=== PATIENT | male | born 1935 | race Caucasian/White ===

== ENCOUNTER → 2017-03-27 | Outpatient (CLI) | payer MEDICARE ==
--- NOTE | 2017-03-27 12:54 | Diagnostic Imaging Report ---
PROCEDURE: US Thyroid. TECHNIQUE: Multiple real-time grayscale images were obtained of the thyroid in various projections. INDICATION: Thyroid nodules. COMPARISON: 04/06/2016. FINDINGS: The right thyroid lobe measures 5.1 x 2.2 x 2.0 cm, previously 4.8 x 1.5 x 1.9 cm. It contains two small subcentimeter hypoechoic nodules measuring 9 mm in long axis, unchanged from the prior exam. They appear well-defined. The left thyroid lobe measures 5.0 x 2.0 x 1.7 cm, previously 4.7 x 2.2 x 1.4 cm. A 6 mm nodule, circumscribed and well-defined in its mid pole laterally, is unchanged. No new dominant or suspicious mass. IMPRESSION: Stable benign-appearing subcentimeter thyroid nodules. Dictated by: Dictated on workstation # [id number]
== END ==
LOC: RAD 10:50
PROVIDERS: ATTEND Otolaryngology Otolaryngology/Facial Plastic Surgery
DX: E04.2 Nontoxic multinodular goiter (principal)
CPT/HCPCS: 76536

== ENCOUNTER → 2018-11-15 | Outpatient (CLI) | payer MEDICARE ==
--- NOTE | 2018-11-15 16:58 | Diagnostic Imaging Report ---
INDICATION: Thyroid nodules TECHNIQUE: Grayscale sonographic images of the thyroid gland. CORRELATION STUDY: FINDINGS: RIGHT LOBE: 4.7 x 1.6 x 1.9 cm. Small, subcentimeter nodules are present. Largest at the inferior pole measuring approximately 8 x 5 x 4 mm. Additional one at the mid aspect 6 x 6 x 4 mm. Both nodules appearing perhaps slightly smaller. LEFT LOBE: 5.2 x 2.3 x 1.1 cm. Small nodule mid superior pole 6 x 4 x 3 mm, relatively stable. No definitive new nodule or mass in either lobe. IMPRESSION: Bilateral thyroid nodule, stable to perhaps a few being slightly smaller. Borderline enlarged thyroid gland (Normal gland size: 4-5 x 2 x 2 cm) Dictated by: Dictated on workstation # [id number]
== END ==
LOC: RAD 12:56
PROVIDERS: ATTEND Otolaryngology Otolaryngology/Facial Plastic Surgery
DX: E04.2 Nontoxic multinodular goiter (principal)
CPT/HCPCS: 76536

== ENCOUNTER → 2019-12-22 | Outpatient (CLI) | payer MEDICARE ==
--- NOTE | 2019-12-22 13:55 | Diagnostic Imaging Report ---
PROCEDURE: US Thyroid. TECHNIQUE: Multiple real-time grayscale images were obtained of the thyroid in various projections. INDICATION: Thyroid nodules, follow up. COMPARISON: Correlation is made with prior thyroid ultrasound from 11/15/2018. FINDINGS: Right lobe of the thyroid measures 5.2 x 1.8 x 1.7 cm and the left lobe measures 4.9 x 1.6 x 1.2 cm. Bilateral thyroid nodules are again noted, two on the right and one on the left. All nodules remain less than 1 cm in size. Nodule on the left is approximately 6 mm x 4 mm, unchanged. Largest nodule on the right is approximately 8 mm x 5 mm compared with approximately 6 mm x 4 mm on prior. There is also a 4 mm nodule in the lower pole. No dominant mass is detected. IMPRESSION: Bilateral subcentimeter thyroid nodules, similar to the examination one year earlier. No dominant thyroid mass is detected. Dictated by: Dictated on workstation # [id number]
== END ==
LOC: RAD 11:10
PROVIDERS: ATTEND Otolaryngology Otolaryngology/Facial Plastic Surgery
DX: E04.1 Nontoxic single thyroid nodule (principal)
CPT/HCPCS: 76536

== ENCOUNTER → 2020-12-27 | Outpatient (CLI) | payer MEDICARE ==
--- NOTE | 2020-12-27 12:59 | Diagnostic Imaging Report ---
INDICATION: BILATERAL THYROID NODULES TECHNIQUE: Grayscale sonographic images of the thyroid gland. CORRELATION STUDY: 12/22/2019. FINDINGS: RIGHT LOBE: 4.9 x 2.7 x 1.7 cm. There are multiple small, at least three nodules within the right lobe. Largest measuring up to 1.2 x 0.5 cm in size. Previously noted largest one up to 0.9 x 0.8 x 0.5 cm. Two additional smaller nodules measuring up to 7 mm in maximum size. LEFT LOBE: 4.2 x 1.9 x 1.2 cm. There is a mixed solid and cystic nodule with calcification in the central aspect measuring up to 5 mm in maximum size. Previously measured approximately 6 mm. Isthmus appears unremarkable. IMPRESSION: Bilateral thyroid nodules. While largest on the right may be slightly larger from prior study, overall features favor probable multinodular goiter. Given questionable change, six-month follow-up assessment would be recommended. (Normal gland size: 4-5 x 2 x 2 cm) Dictated by: Dictated on workstation # [id number]
== END ==
LOC: RAD 09:40
PROVIDERS: ATTEND Otolaryngology Otolaryngology/Facial Plastic Surgery
DX: E04.2 Nontoxic multinodular goiter (principal)
CPT/HCPCS: 76536